=== PATIENT | female | born 1970 | race Caucasian/White ===

== ENCOUNTER 2016-12-11 22:57 | Emergency (ER) | payer MEDICAID ==
[~2016-12-11] VITALS: Ht 162.6 cm; Wt 71.0 kg
[2016-12-12 00:06] LABS: BASOPHILS % 0.4 % (0.0-2.0); EOSINOPHILS % 0.7 % (0.0-5.0); HEMATOCRIT. 31.5 % (36.0-48.0); HEMOGLOBIN. 9.9 g/dL (12.0-16.0); LYMPHOCYTES % 19.1 % (20.0-50.0); MEAN CORPUSCULAR HEMOGLOBIN 21.8 pg (28.0-32.0); MEAN PLATELET VOLUME 10.2 fl (7.4-10.4); MONOCYTES % 4.9 % (2.0-8.0); NEUTROPHILS % 74.9 % (40.0-76.0); PLATELET 166 x1000/uL (130-400); RED BLOOD CELL COUNT 4.56 mill/uL (4.2-5.4); RED CELL DISTRIBUTION WIDTH 18.7 % (11.6-14.6)
[2016-12-12 00:14] LABS: CHLORIDE 101 mEq/L (98-107)
[2016-12-12 00:15] LABS: HCG SCREEN NEGATIVE
[2016-12-12 00:22] LABS: CARBON DIOXIDE 27 mEq/L (21-32)
[2016-12-12 00:56] LABS: CLARITY URINE CLEAR (CLEAR); COLOR URINE YELLOW (YELLOW); GLUCOSE URINE 1+ (NEGATIVE); KETONES URINE TRACE (NEGATIVE); LEUKOCYTE ESTERASE URINE 1+ (NEGATIVE); NITRITE URINE NEGATIVE (NEGATIVE); OCCULT BLOOD URINE NEGATIVE (NEGATIVE); PH URINE 7.5 (4.5-8.0); PROTEIN URINE NEGATIVE (NEGATIVE); SPECIFIC GRAVITY URINE 1.012 (1.005-1.030)
[2016-12-12] MEDS ORDERED: MORPHINE SULFATE 4 MG/ML CPJ (NOT FOR IM USE) IV STA (01:25)
[2016-12-12 06:30] VITALS: BP 114/75
== END 2016-12-12 06:45 | disposition home or self-care (01) ==
LOC: ER 22:57
DX: K52.9 Noninfective gastroenteritis and colitis, unspecified (principal); D64.9 Anemia, unspecified; D25.9 Leiomyoma of uterus, unspecified; E11.9 Type 2 diabetes mellitus without complications
CPT/HCPCS: 36415; 71010; 74176; 80053; 81001; 83690; 84703; 85025; 93005; 96374; 99285; J2270; Z7610

== ENCOUNTER 2023-11-04 22:46 | Emergency (ER) | payer SELFPAY ==
[~2023-11-04] VITALS: Ht 167.6 cm; Wt 64.0 kg
[2023-11-04 23:00] VITALS: BP 185/99; PULSE 91; RESP 18; TEMP 98.4; O2SAT 100
[2023-11-05 00:34] LABS: POTASSIUM 3.7 mEq/L (3.5-5.1)
[2023-11-05 00:36] LABS: BASOPHILS % 0.7 % (0.0-2.0); CALCIUM 9.5 mg/dL (8.7-10.4); EOSINOPHILS % 0.9 % (0.0-5.0); HEMATOCRIT. 42.1 % (36.0-48.0); HEMOGLOBIN. 14.3 g/dL (12.0-16.0); LYMPHOCYTES % 35.8 % (20.0-50.0); MEAN CORPUSCULAR HEMOGLOBIN 29.3 pg (28.0-32.0); MEAN CORPUSCULAR HGB CONC 33.9 g/dL (31.0-37.0); MEAN CORPUSCULAR VOLUME 86.3 fL (81.0-99.0); MEAN PLATELET VOLUME 11.1 fl (7.4-10.4); MONOCYTES % 5.6 % (2.0-8.0); PLATELET 118 x1000/uL (130-400); RED BLOOD CELL COUNT 4.88 mill/uL (4.2-5.4); RED CELL DISTRIBUTION WIDTH 13.3 % (11.6-14.6); WHITE BLOOD COUNT 6.6 x1000/uL (4.5-11.0)
[2023-11-05 00:43] LABS: BETA HYDROXYBUTYRATE 0.1 mMol/L (0.0-0.3)
[2023-11-05] MEDS: SODIUM CHLORIDE 0.9% 1,000 ML IV ONE (00:51)
== END 2023-11-05 01:51 | disposition home or self-care (01) ==
LOC: ER 22:46
DX: E11.65 Type 2 diabetes mellitus with hyperglycemia (principal); Z98.890 Other specified postprocedural states
CPT/HCPCS: 99284; 80048; 82010; 82962; 85025; 36415; 93005; 96360; J7030; Z7610